=== PATIENT | female | born 1990 | race Caucasian/White ===

== ENCOUNTER 2016-08-19 11:20 | Emergency (ER) | payer OTHER ==
[2016-08-19 12:07] LABS: BILIRUBIN NEGATIVE (NEGATIVE); BLOOD NEGATIVE Ery/uL (NEGATIVE); CLARITY CLEAR (CLEAR); COLOR YELLOW (YELLOW); GLUCOSE (U) NORMAL (NORMAL); KETONE (U) NEGATIVE (NEGATIVE); LEUKOCYTES TRACE Leu/uL (NEGATIVE); NITRITE NEGATIVE (NEGATIVE); PROTEIN NEGATIVE (NEGATIVE); SPECIFIC GRAVITY <=1.005 (1.001-1.030); UROBILINOGEN 0.2 mg/dL (0.2-1.0); pH 6.5 (5.0-9.0)
[2016-08-19 12:19] LABS: BACTERIA TRACE
[2016-08-19 12:31] LABS: HCT 44.7 % (37.0-47.0); HGB 15.3 g/dl (12.5-16.0); MCH 29.4 pg (25.0-31.0); MCHC 34.2 g/dL (32.0-36.0); MPV 9.3 fL (6.0-9.5); RBC 5.2 M/uL (4.20-5.40); RDW 12.8 % (11.5-14.0); WBC 6.9 K/uL (4.0-10.5)
[2016-08-19 12:47] LABS: CREATININE 0.6 mg/dL (0.5-1.0); POTASSIUM 3.8 mmol/L (3.5-5.1)
== END 2016-08-19 14:37 | disposition home or self-care (01) ==
LOC: FER 11:20
PROVIDERS: Internal Medicine
DX: O20.0 Threatened abortion (principal); Z3A.01 Less than 8 weeks gestation of pregnancy
CPT/HCPCS: 36415; 76817; 80048; 81001; 84702; 87210